=== PATIENT | male | born 1960 | race African-American/Black ===

== ENCOUNTER 2021-04-13 15:52 | Inpatient (IN) | payer MEDICAID, OTHER ==
[~2021-04-13] VITALS: Ht 177.8 cm; Wt 81.6 kg
[2021-04-13] MEDS ORDERED: ASPIRIN 325 MG TABLET ONE (16:12)
[2021-04-13] MEDS ORDERED: ASPIRIN 325 MG TABLET PO ONE (16:15)
[2021-04-13 17:00] LABS: HEMATOCRIT 38.8 % (36.7-47.1); MEAN CORPUSCULAR HEMOGLOBIN 33.8 uug (23.8-33.4); PLATELET COUNT (AUTO) 171 K/uL (152-348)
[2021-04-13 17:07] LABS: POTASSIUM 3.8 mmol/L (3.5-5.1)
[2021-04-13 17:23] LABS: BILIRUBIN,DIRECT 0.1 mg/dL (0.0-0.2); BILIRUBIN,TOTAL 0.3 mg/dL (0.2-1.0); TOTAL PROTEIN, SERUM 6.5 g/dL (6.4-8.2)
[2021-04-13] MEDS ORDERED: MORPHINE SULFATE 2 MG/1 ML DISP.SYRIN ONE (17:23)
[2021-04-13] MEDS ORDERED: MORPHINE SULFATE 2 MG/1 ML DISP.SYRIN IV ONE (17:30)
[2021-04-13] MEDS ORDERED: HALO5TAB PO (17:39)
[2021-04-13] MEDS ORDERED: PHEN100C4 PO (17:39)
[2021-04-13] MEDS ORDERED: IOHEXOL 300MG/ML 100 ML INFUS..BTL ONE (18:05)
[2021-04-13] MEDS ORDERED: IV NORMAL SALINE 250 ML IV ONE (18:05)
[2021-04-13] MEDS ORDERED: SWABABLE VALVE TRANSFER SET EA MC ONE (18:05)
[2021-04-13] MEDS ORDERED: HYDROMORPHONE 1 MG/1 ML DISP.SYRIN IV ONE (19:30)
[2021-04-13] MEDS ORDERED: ONDANSETRON 4 MG/2 ML VIAL IV ONE (19:30)
[2021-04-13] MEDS ORDERED: HYDROMORPHONE 1 MG/1 ML DISP.SYRIN ONE (19:36)
[2021-04-13] MEDS ORDERED: ONDANSETRON 4 MG/2 ML VIAL ONE (19:37)
[2021-04-13 21:02] VITALS: BP 147/88
[2021-04-13] MEDS ORDERED: MAGNESIUM HYDROXIDE 30 ML LIQUID UDC PO PRN (22:00)
[2021-04-13] MEDS ORDERED: ACETAMINOPHEN 325 MG TABLET PO PRN (22:00)
[2021-04-13] MEDS ORDERED: ONDANSETRON 4 MG/2 ML VIAL IV PRN (22:00)
[2021-04-13] MEDS ORDERED: TEMAZEPAM 15 MG CAPSULE PO PRN (22:00)
[2021-04-13] MEDS ORDERED: Z GUARD REMEDY PASTE 57 GM TUBE TOP PRN (22:00)
[2021-04-13] MEDS: MORPHINE SULFATE 2 MG/1 ML DISP.SYRIN IV PRN (23:34)
[2021-04-14 00:13] VITALS: BP 136/71
[2021-04-14] MEDS: MORPHINE SULFATE 2 MG/1 ML DISP.SYRIN IV PRN ×5 (03:28→20:48)
[2021-04-14 04:38] VITALS: BP 141/74
[2021-04-14 06:26] LABS: HEMATOCRIT 38.3 % (36.7-47.1); MEAN CORPUSCULAR HEMOGLOBIN 34.2 uug (23.8-33.4); MEAN CORPUSCULAR VOLUME 102.7 fL (73.0-96.2); PLATELET COUNT (AUTO) 149 K/uL (152-348)
[2021-04-14 06:48] LABS: BILIRUBIN,TOTAL 0.5 mg/dL (0.2-1.0); CREATININE 0.8 mg/dL (0.6-1.3); MAGNESIUM 1.6 mg/dL (1.8-2.4); PHENYTOIN (DILANTIN) 1.2 ug/mL (10.0-20.0); PHOSPHOROUS 3.3 mg/dL (2.5-4.9); POTASSIUM 3.5 mmol/L (3.5-5.1); TOTAL PROTEIN, SERUM 6.3 g/dL (6.4-8.2)
[2021-04-14 07:06] LABS: THYROID STIMULATING HORMONE 4.388 mIU/mL (0.358-3.740)
[2021-04-14] MEDS: PHENYTOIN SODIUM EXTENDED 100 MG CAPSULE.SA PO SCH (08:13)
[2021-04-14] MEDS: HALOPERIDOL 5 MG TABLET PO SCH ×2 (08:14→20:12)
[2021-04-14] MEDS: PANTOPRAZOLE SODIUM 40 MG VIAL IV SCH (08:14)
[2021-04-14] MEDS: MAGNESIUM SULFATE/D5W 100 ML IV SCH ×2 (08:14→10:07)
[2021-04-14] MEDS: POTASSIUM CHLORIDE 50 ML IV SCH ×3 (08:30→14:44)
[2021-04-14 12:00] VITALS: BP 93/62
[2021-04-14 16:00] VITALS: BP 175/92
[2021-04-14] MEDS ORDERED: POTASSIUM CHLORIDE 10 MEQ TAB.PRT.SR PO ONE (16:15)
[2021-04-14] MEDS ORDERED: ISOS60TA72 PO (18:07)
[2021-04-14] MEDS ORDERED: NA P133E RC (18:07)
[2021-04-14] MEDS ORDERED: MAGN400O6 PO (18:07)
[2021-04-14] MEDS ORDERED: NICO-671 TP (18:07)
[2021-04-14] MEDS ORDERED: ACET-2154 PO (18:07)
[2021-04-14] MEDS ORDERED: NITR0.4T48 SL (18:07)
[2021-04-14] MEDS ORDERED: METO50TA7 PO (18:07)
[2021-04-14] MEDS ORDERED: BISA10SU61 RC (18:07)
[2021-04-14] MEDS ORDERED: CLOP75TA33 PO (18:07)
[2021-04-14] MEDS ORDERED: LOSA25TA27 PO (18:07)
[2021-04-14] MEDS ORDERED: AMLO10TA4 PO (18:07)
[2021-04-14] MEDS ORDERED: ATOR80TA PO (18:07)
[2021-04-14] MEDS ORDERED: BENZ0.5T43 PO (18:07)
[2021-04-14] MEDS ORDERED: MAG30ORA PO (18:07)
[2021-04-14] MEDS ORDERED: OXYC5TAB3 PO ×2 (18:07)
[2021-04-14] MEDS ORDERED: ZOLP5TAB8 PO (18:07)
[2021-04-14] MEDS ORDERED: ONDA4TAB5 PO (18:07)
[2021-04-14] MEDS ORDERED: [UNRECOGNIZED DRUG - CODE] PO (18:09)
[2021-04-14 20:05] VITALS: BP 101/54
[2021-04-14] MEDS: ATORVASTATIN 40 MG TABLET PO SCH (20:12)
[2021-04-14] MEDS ORDERED: PHENYTOIN SODIUM IV 1,000 MG in IV NORMAL SALINE 100 ML IV ONE (20:30)
[2021-04-15 00:05] VITALS: BP 125/75
[2021-04-15] MEDS: MORPHINE SULFATE 2 MG/1 ML DISP.SYRIN IV PRN ×5 (00:15→21:11)
[2021-04-15 04:16] LABS: MEAN CORPUSCULAR HEMOGLOBIN 32.9 uug (23.8-33.4); MEAN CORPUSCULAR VOLUME 99.8 fL (73.0-96.2); PLATELET COUNT (AUTO) 156 K/uL (152-348)
[2021-04-15 04:31] LABS: PHENYTOIN (DILANTIN) 12.1 ug/mL (10.0-20.0)
[2021-04-15 04:57] LABS: BILIRUBIN,TOTAL 0.5 mg/dL (0.2-1.0); CREATININE 0.8 mg/dL (0.6-1.3); MAGNESIUM 1.9 mg/dL (1.8-2.4); PHOSPHOROUS 3.4 mg/dL (2.5-4.9); POTASSIUM 3.9 mmol/L (3.5-5.1); TOTAL PROTEIN, SERUM 6.8 g/dL (6.4-8.2)
[2021-04-15 05:02] LABS: *BILIRUBIN,URIN NEGATIVE (NEGATIVE); *BLOOD, URINE NEGATIVE (NEGATIVE); *CLARITY,URINE CLEAR (CLEAR); *COLOR,URINE YELLOW (YELLOW); *KETONES,URINE TRACE (NEGATIVE); *UROBILINOGEN,URINE 0.2 E.U./dl (NORMAL); LEUKOCYTE ESTERASE ,URINE NEGATIVE (NEGATIVE); NITRITE, URINE NEGATIVE (NEGATIVE); UGLUCOSE NEGATIVE (NEGATIVE)
[2021-04-15 05:11] LABS: BACTERIA,URINE NONE SEEN /HPF (NONE SEEN); RBC,URINE NONE SEEN /HPF (0-3); SQUAMOUS EPITHELIAL CELL,UR FEW /HPF (NONE SEEN); WBC,URINE 0-3 /HPF (0-3)
[2021-04-15 06:00] VITALS: BP 162/79
[2021-04-15 06:30] VITALS: BP 148/76
[2021-04-15] MEDS ORDERED: SUCRALFATE 1 G/10 ML LIQUID UDC GT SCH (07:30)
[2021-04-15] MEDS: FOLIC ACID 1 MG TABLET PO SCH (09:21)
[2021-04-15] MEDS: MULTIVITAMINS,THERAPEUTIC TABLET PO SCH (09:21)
[2021-04-15] MEDS: HALOPERIDOL 5 MG TABLET PO SCH ×2 (09:22→20:29)
[2021-04-15] MEDS: PANTOPRAZOLE SODIUM 40 MG VIAL IV SCH (09:22)
[2021-04-15] MEDS: PHENYTOIN SODIUM EXTENDED 100 MG CAPSULE.SA PO SCH (09:22)
[2021-04-15] MEDS: SUCRALFATE 1 G TABLET PO SCH ×4 (09:27→20:28)
[2021-04-15 11:36] VITALS: BP 152/80
[2021-04-15 16:06] VITALS: BP 149/70
[2021-04-15 20:10] VITALS: BP 155/77
[2021-04-15] MEDS: ATORVASTATIN 40 MG TABLET PO SCH (20:29)
[2021-04-16] VITALS: BP 155/78
[2021-04-16] MEDS: MORPHINE SULFATE 2 MG/1 ML DISP.SYRIN IV PRN ×4 (01:31→19:29)
[2021-04-16 04:10] VITALS: BP 170/81
[2021-04-16 06:22] LABS: HEMATOCRIT 43.4 % (36.7-47.1); MEAN CORPUSCULAR HEMOGLOBIN 34.7 uug (23.8-33.4); MEAN CORPUSCULAR VOLUME 100.7 fL (73.0-96.2); PLATELET COUNT (AUTO) 163 K/uL (152-348)
[2021-04-16] MEDS: SUCRALFATE 1 G TABLET PO SCH ×4 (06:44→21:08)
[2021-04-16] MEDS: PANTOPRAZOLE SODIUM 40 MG TABLET.DR PO SCH (06:45)
[2021-04-16 06:51] LABS: CREATININE 0.9 mg/dL (0.6-1.3); MAGNESIUM 1.9 mg/dL (1.8-2.4); PHOSPHOROUS 3.2 mg/dL (2.5-4.9); POTASSIUM 3.8 mmol/L (3.5-5.1)
[2021-04-16] MEDS: MULTIVITAMINS,THERAPEUTIC TABLET PO SCH (09:06)
[2021-04-16] MEDS: HALOPERIDOL 5 MG TABLET PO SCH ×2 (09:06→21:08)
[2021-04-16] MEDS: PHENYTOIN SODIUM EXTENDED 100 MG CAPSULE.SA PO SCH (09:06)
[2021-04-16] MEDS: FOLIC ACID 1 MG TABLET PO SCH (09:07)
[2021-04-16 11:37] VITALS: BP 137/79
[2021-04-16 15:29] VITALS: BP 129/76
[2021-04-16 20:00] VITALS: BP 134/69
[2021-04-16] MEDS: ATORVASTATIN 40 MG TABLET PO SCH (21:08)
[2021-04-17] MEDS: MORPHINE SULFATE 2 MG/1 ML DISP.SYRIN IV PRN ×2 (00:20→07:10)
[2021-04-17 04:00] VITALS: BP 141/79
[2021-04-17] MEDS: SUCRALFATE 1 G TABLET PO SCH ×3 (06:34→16:22)
[2021-04-17] MEDS: PANTOPRAZOLE SODIUM 40 MG TABLET.DR PO SCH (06:34)
[2021-04-17] MEDS: FOLIC ACID 1 MG TABLET PO SCH (08:35)
[2021-04-17] MEDS: HALOPERIDOL 5 MG TABLET PO SCH (08:35)
[2021-04-17] MEDS: MULTIVITAMINS,THERAPEUTIC TABLET PO SCH (08:36)
[2021-04-17] MEDS: PHENYTOIN SODIUM EXTENDED 100 MG CAPSULE.SA PO SCH (08:36)
[2021-04-17 11:48] VITALS: BP 122/73
[2021-04-17 15:50] VITALS: BP 133/82
[2021-04-17] MEDS ORDERED: PROPOFOL 200 MG/20 ML BOTTLE IV ONE (17:24)
== END 2021-04-17 17:25 | DRG 241 ==
LOC: EDBD 15:55 → ER 15:55 → TELE3 20:36 → MEDSURG3 04-16 08:59
PROVIDERS: ADMIT Hospitalist; ATTEND Hospitalist
PROC: 0DB68ZX Excision of Stomach, Via Natural or Artificial Opening Endoscopic, Diagnostic (ICD-10-PCS; principal; 2021-04-15)
PROC: 0DB48ZX Excision of Esophagogastric Junction, Via Natural or Artificial Opening Endoscopic, Diagnostic (ICD-10-PCS; principal; 2021-04-15)
PROC: 0D738ZZ Dilation of Lower Esophagus, Via Natural or Artificial Opening Endoscopic (ICD-10-PCS; principal; 2021-04-15)
DX: K25.4 Chronic or unspecified gastric ulcer with hemorrhage (principal); D69.6 Thrombocytopenia, unspecified; E87.2 Acidosis; E44.0 Moderate protein-calorie malnutrition; E83.42 Hypomagnesemia; E88.09 Other disorders of plasma-protein metabolism, not elsewhere classified; K22.2 Esophageal obstruction; K26.4 Chronic or unspecified duodenal ulcer with hemorrhage; I25.10 Atherosclerotic heart disease of native coronary artery without angina pectoris; F20.9 Schizophrenia, unspecified; I11.9 Hypertensive heart disease without heart failure; G40.909 Epilepsy, unspecified, not intractable, without status epilepticus; K44.9 Diaphragmatic hernia without obstruction or gangrene; Z95.1 Presence of aortocoronary bypass graft; K29.70 Gastritis, unspecified, without bleeding; K29.80 Duodenitis without bleeding; F12.90 Cannabis use, unspecified, uncomplicated; Z87.891 Personal history of nicotine dependence; D75.89 Other specified diseases of blood and blood-forming organs; K22.8 Other specified diseases of esophagus; Z20.822 Contact with and (suspected) exposure to COVID-19; R91.1 Solitary pulmonary nodule
CPT/HCPCS: 36415; 70030-TC; 71045; 83605; 83735; 84100; 84443; 85025; 85610; 85730; 86850; 86900; 86901; 88313-TC; 88342; 93005; 93307; A4217; A4663; A9537; C1726; C9113; G0378; J1165; J1170; J2270; J2405; J3475; J3480; J3490; J7030; J7040; J7050; Q9967